=== PATIENT | female | born 1945 | race African-American/Black ===

== ENCOUNTER 2018-01-13 19:03 | Emergency (ER) | payer MEDICARE, MEDICAID ==
[~2018-01-13] VITALS: Ht 165.1 cm; Wt 94.0 kg
[~2018-01-13 19:03] MED LIST: ALPR0.25 PO; AMLODIPINE PO; ATROVASTATIN PO; LEVO500T2 PO; METFORMIN; METOPROLOL; NITROGLYCERIN SPRAY; OMEP20TA2; OMPERAZOLE PO; PENI-88 PO; TRAZADONE PO; VENLAFAXINE PO; VENTOLIN HFA; VICODIN PO; ZETIA PO; [UNRECOGNIZED DRUG - CODE]
[2018-01-13 19:05] VITALS: BP 168/90
== END 2018-01-14 00:35 | disposition left against medical advice (07) ==
LOC: ER 23:19
DX: Z53.21 Procedure and treatment not carried out due to patient leaving prior to being seen by health care provider (principal)
CPT/HCPCS: J7030

== ENCOUNTER 2019-10-31 20:18 | Emergency (ER) | payer MEDICARE, MEDICAID ==
[~2019-10-31] VITALS: Ht 162.6 cm; Wt 102.0 kg
[2019-10-31] MEDS ORDERED: SODIUM CHLORIDE 0.9% 500 ML IV ONE (22:00)
[2019-10-31 22:56] LABS: CLARITY URINE CLEAR (CLEAR); COLOR URINE YELLOW (YELLOW); KETONES URINE NEGATIVE (NEGATIVE); LEUKOCYTE ESTERASE URINE 1+ (NEGATIVE); NITRITE URINE NEGATIVE (NEGATIVE); OCCULT BLOOD URINE NEGATIVE (NEGATIVE); PROTEIN URINE NEGATIVE (NEGATIVE); SPECIFIC GRAVITY URINE 1.012 (1.005-1.030); UROBILINOGEN URINE 0.2 E.U./dL (0.2-1.0)
[2019-10-31 22:59] LABS: BASOPHILS % 0.5 % (0.0-2.0); EOSINOPHILS % 4.3 % (0.0-5.0); HEMATOCRIT. 45.9 % (36.0-48.0); HEMOGLOBIN. 14.8 g/dL (12.0-16.0); LYMPHOCYTES % 35.3 % (20.0-50.0); MEAN CORPUSCULAR HEMOGLOBIN 27.4 pg (28.0-32.0); MEAN CORPUSCULAR VOLUME 84.8 fL (81.0-99.0); MONOCYTES % 7.4 % (2.0-8.0); NEUTROPHILS % 52.5 % (40.0-76.0); PLATELET 266 x1000/uL (130-400); RED BLOOD CELL COUNT 5.41 mill/uL (4.2-5.4)
[2019-10-31 23:40] LABS: CHLORIDE 109 mEq/L (98-107)
[2019-11-01 00:47] VITALS: BP 168/96
== END 2019-11-01 00:49 | disposition home or self-care (01) ==
LOC: ER 20:18
DX: R53.1 Weakness (principal); R06.00 Dyspnea, unspecified; N39.0 Urinary tract infection, site not specified; J45.909 Unspecified asthma, uncomplicated; I10 Essential (primary) hypertension
CPT/HCPCS: 36415; 71045; 80053; 81003; 82962; 83880; 84484; 85025; 87635; 93005; 99285; C9803; J7040